=== PATIENT | male | born 1950 | race Two or more races ===

== ENCOUNTER 2018-02-19 08:17 | Inpatient (IN) | payer MEDICARE ==
[2018-02-14 08:46] VITALS: BP 167/76
[~2018-02-19] VITALS: Ht 170.2 cm; Wt 76.0 kg
[~2018-02-19 08:17] MED LIST: CALC1CAP8 PO; CHOL200074 PO; GLUC500T11 PO; MULT-224 PO; NAPR220C2 PO
[2018-02-19] MEDS ORDERED: LIDOCAINE-MPF 1%, 2ML ONE (10:19)
[2018-02-19] MEDS ORDERED: LACTATED RINGERS 1,000 ML IV SCH ×2 (10:23)
[2018-02-19] MEDS ORDERED: GABAPENTIN 300 MG CAPSULE ONE (10:26)
[2018-02-19] MEDS ORDERED: ACETAMINOPHEN 500 MG TABLET ONE (10:26)
[2018-02-19] MEDS ORDERED: OxyconTIN ER 10 MG TAB.ER ONE (10:26)
[2018-02-19] MEDS ORDERED: OxyconTIN ER 10 MG TAB.ER PO ONE (10:30)
[2018-02-19] MEDS ORDERED: ACETAMINOPHEN 500 MG TABLET PO ONE (10:30)
[2018-02-19] MEDS ORDERED: LIDOCAINE-MPF 1%, 2ML INFIL ONE ×2 (10:30)
[2018-02-19] MEDS ORDERED: GABAPENTIN 300 MG CAPSULE PO ONE (10:30)
[2018-02-19] MEDS ORDERED: FLUTICASONE TP (10:40)
[2018-02-19] MEDS ORDERED: MIDAZOLAM 1 MG/ML, 2ML ONE (11:25)
[2018-02-19] MEDS ORDERED: FENTANYL PF 100 MCG/2ML ONE (11:25)
[2018-02-19] MEDS ORDERED: PNEUMOCOCCAL 23 VACCINE IM-VACC ONE (11:30)
[2018-02-19] MEDS ORDERED: TRANEXAMIC ACID 100 MG/ML, 10ML ONE (12:21)
[2018-02-19] MEDS ORDERED: SODIUM CHLORIDE 0.9% 0 ML ONE (12:21)
[2018-02-19] MEDS ORDERED: EPINEPHRINE 1 MG/ML, 1ML ONE ×2 (12:21→14:20)
[2018-02-19] MEDS ORDERED: ROPIvacaine/PF 0.2%, 20 ML ONE ×2 (12:21→14:20)
[2018-02-19] MEDS ORDERED: BUPIVACAINE/PF 0.5% ONE (12:26)
[2018-02-19] MEDS ORDERED: PROMETHAZINE 12.5 MG SUPP PR PRN (12:30)
[2018-02-19] MEDS ORDERED: HYDROmorphone 1 MG/ML, 1ML IV PRN (12:30)
[2018-02-19] MEDS ORDERED: DIPHENHYDRAMINE 50 MG CAPSULE PO PRN (12:30)
[2018-02-19] MEDS ORDERED: ACETAMINOPHEN 650 MG/20.3 ML UDC PO SCH (12:30)
[2018-02-19] MEDS ORDERED: ZOLPIDEM 5MG TABLET PO PRN (12:30)
[2018-02-19] MEDS ORDERED: ALUMINUM/MAG/SIMETHICONE 30 ML UDC PO PRN (12:30)
[2018-02-19] MEDS ORDERED: SENNA/DOCUSATE TABLET PO PRN (12:30)
[2018-02-19] MEDS ORDERED: DIAZEPAM 5 MG TABLET PO PRN (12:30)
[2018-02-19] MEDS ORDERED: ONDANSETRON 2MG/ML, 2ML IV PRN (12:30)
[2018-02-19] MEDS ORDERED: BISACODYL 10 MG SUPP PR PRN (12:30)
[2018-02-19] MEDS ORDERED: OXYcodone IR 5MG TABLET PO PRN (12:30)
[2018-02-19] MEDS ORDERED: MAGNESIUM HYDROXIDE 8%, 30ML UDC PO PRN (12:30)
[2018-02-19] MEDS ORDERED: KETOROLAC 30 MG/1 ML IV SCH (12:30)
[2018-02-19] MEDS ORDERED: ONDANSETRON 4 MG TABLET PO PRN (12:30)
[2018-02-19] MEDS ORDERED: PROMETHAZINE 25 MG/ML, 1ML IM PRN (12:30)
[2018-02-19] MEDS ORDERED: HYDROcodone/APAP 10/325 MG TABLET PO PRN (12:30)
[2018-02-19] MEDS ORDERED: CEFAZOLIN 1,000 MG ONE (12:41)
[2018-02-19] MEDS ORDERED: PROPOFOL 10 MG/ML, 50ML ONE (12:41)
[2018-02-19] MEDS ORDERED: ONDANSETRON 2MG/ML, 2ML IVPush PRN (13:30)
[2018-02-19] MEDS ORDERED: HYDROcodone/APAP 7.5-325MG/15ML UDC PO PRN (13:30)
[2018-02-19] MEDS ORDERED: FENTANYL PF 100 MCG/2ML IV PRN (13:30)
[2018-02-19] MEDS ORDERED: hydrALAzine 20 MG/ML, 1ML IV PRN (13:30)
[2018-02-19] MEDS ORDERED: morphine SULFATE 10 MG/ML, 1ML IV PRN (13:30)
[2018-02-19] MEDS ORDERED: PROMETHAZINE 25 MG/ML, 1ML IV PRN (13:30)
[2018-02-19] MEDS ORDERED: LABETALOL 5MG/ML, 20ML IV PRN (13:30)
[2018-02-19] MEDS ORDERED: OXYcodone 5 MG/5 ML ORAL.SOL UDC PO PRN (13:30)
[2018-02-19] MEDS ORDERED: TRANEXAMIC ACID 1,000 MG in SODIUM CHLORIDE 0.9% 100 ML IVPB ONE (14:00)
[2018-02-19] MEDS ORDERED: KETOROLAC 60 MG/2 ML ONE (14:20)
[2018-02-19] MEDS ORDERED: SODIUM CHLORIDE 0.9% 100 ML ONE (14:20)
[2018-02-19] MEDS ORDERED: OXYcodone 5 MG/5 ML ORAL.SOL UDC ONE (15:15)
[2018-02-19 15:55] VITALS: BP 144/76
[2018-02-19] MEDS: D5%-0.45% NACL 1,000 ML IV SCH ×2 (16:08→18:45)
[2018-02-19] MEDS: OXYcodone IR 5MG TABLET PO SCH ×2 (16:11→20:43)
[2018-02-19] MEDS: TAMSULOSIN 0.4 MG CAP.ER.24H PO SCH (16:31)
[2018-02-19] MEDS: ACETAMINOPHEN 500 MG TABLET PO SCH ×2 (16:31→22:55)
[2018-02-19 18:51] VITALS: BP 144/73
[2018-02-19] MEDS ORDERED: CEFAZOLIN PMX 2GM/50ML 50 ML IVPB SCH (20:00)
[2018-02-19] MEDS: DOCUSATE 100 MG CAPSULE PO SCH (22:55)
[2018-02-20] MEDS: OXYcodone IR 5MG TABLET PO SCH ×4 (00:56→12:26)
[2018-02-20 01:28] VITALS: BP 108/56
[2018-02-20] MEDS ORDERED: CEFAZOLIN 2,000 MG in DEXTROSE 5% 100 ML IVPB SCH (04:00)
[2018-02-20] MEDS: ACETAMINOPHEN 500 MG TABLET PO SCH ×2 (04:30→11:11)
[2018-02-20] MEDS: D5%-0.45% NACL 1,000 ML IV SCH ×2 (04:54→12:09)
[2018-02-20] MEDS ORDERED: DEXAMETHASONE 4 MG/ML, 1ML IVPush SCH (06:00)
[2018-02-20] MEDS ORDERED: ASPIRIN 81 MG TABLET EC PO SCH (06:00)
[2018-02-20 07:15] VITALS: BP 126/65
[2018-02-20] MEDS: TAMSULOSIN 0.4 MG CAP.ER.24H PO SCH (08:42)
[2018-02-20] MEDS: DOCUSATE 100 MG CAPSULE PO SCH (08:42)
[2018-02-20] MEDS ORDERED: ACET500T71 PO (08:53)
[2018-02-20] MEDS ORDERED: ASPI-621 PO ×2 (08:53→10:23)
[2018-02-20] MEDS ORDERED: MULTIVITAMINS/MINERALS TABLET PO SCH (09:00)
[2018-02-20] MEDS ORDERED: OXYC5TAB3 PO (09:36)
[2018-02-20 12:10] VITALS: BP 137/71
[2018-02-20 12:18] VITALS: BP 111/55
[2018-02-20] MEDS ORDERED: KETOROLAC 30 MG/1 ML IV SCH (14:30)
== END 2018-02-20 13:30 | disposition home or self-care (01) | DRG 470 ==
LOC: ORIP 09:54 → 4NOR 15:44 → DCLOUNGE 02-20 13:20
PROVIDERS: ADMIT Orthopaedic Surgery; ATTEND Orthopaedic Surgery
PROC: 0SR901A Replacement of Right Hip Joint with Metal Synthetic Substitute, Uncemented, Open Approach (ICD-10-PCS; principal; 2018-02-19 12:30)
DX: M16.11 Unilateral primary osteoarthritis, right hip (principal)
CPT/HCPCS: 36415; 72170; 85014; 85018; 86850; 86900; 90732; C1713; J0171; J0690; J1100; J1885; J2250; J2704; J2795; J3010; J3490; C1776; J7120

== ENCOUNTER 2019-10-13 15:54 | Observation (INO) | payer MEDICARE ==
[~2019-10-13] VITALS: Ht 165.1 cm; Wt 67.8 kg
[~2019-10-13 15:54] MED LIST changes: +ACET500T64 PO; +ASPI81TA45 PO; +FLUTICASONE TP; -MULT-224 PO; +MULT-642 PO; +OXYC5TAB3 PO
[2019-10-13] MEDS ORDERED: TRAZ-137 PO (16:13)
--- NOTE | 2019-10-13 16:24 | NUR ---
PT ARRIVES TO ED WITH NEURO COMPLAINTS AND SOME CHEST PAIN. PT REPORTS HE HAS HAD THIS CRAMPING IN HIS HEAD AND FEELING LIKE ANTS ARE CRAWLING IN HIS HEAD. HE REPORTS THAT HE FEELS HIS MUSCLES TIGHTEN UP ON HIS NECK ON THE RIGHT SIDE. PT DENIES SIGNIFICANT MEDICAL HX. PT REPORTS NO TRUAMA. PT IS ABLE TO AMBULATE AND GROSS NEURO APPEARS INTACT. PT BEEN SEEN BY CARDIOLOGY AND HIS PCP AND HAS ORDERS IN PLACE. PT CONNECTED TO SPO2, HR, BP AND RR. CALL LIGHT IN REACH. AWAITING FURTHER ORDERS.
[2019-10-13] MEDS ORDERED: ASPIRIN 81 MG TABLET CHEW ONE (16:37)
[2019-10-13 16:52] LABS: BASOPHILS # (AUTO) 0.09 x10^3/uL (0-0.1); BASOPHILS % (AUTO) 1 % (0-1); EOSINOPHILS # (AUTO) 0.02 x10^3/uL (0-0.4); EOSINOPHILS % (AUTO) 0 % (1-7); LYMPHOCYTES # (AUTO) 1.18 x10^3/uL (1-3.4); LYMPHOCYTES % (AUTO) 19 % (22-44); MD NO; MEAN CORPUSCULAR HEMOGLOBIN 27.4 pg (27.5-34.5); MEAN CORPUSCULAR HGB CONC 32.6 g/dL (33.2-36.2); MEAN CORPUSCULAR VOLUME 84.1 fL (81-97); MEAN PLATELET VOLUME 7.2 fL (7.4-10.4); MONOCYTES # (AUTO) 0.49 x10^3/uL (0.2-0.8); MONOCYTES % (AUTO) 8 % (2-9); NEUTROPHILS # (AUTO) 4.43 x10^3/uL (1.8-6.8); NEUTROPHILS % (AUTO) 71 % (42-75); PLATELET COUNT 250 x10^3/uL (130-400); RED BLOOD COUNT 4.86 x10^6/uL (4.38-5.82)
[2019-10-13] MEDS ORDERED: ASPIRIN 81 MG TABLET CHEW PO ONE (17:00)
[2019-10-13] MEDS ORDERED: SODIUM CHLORIDE FLUSH 10ML SYR IVF ONE (17:00)
[2019-10-13 17:05] LABS: ALBUMIN 3.7 g/dL (3.4-5.0); ANION GAP 5 mmol/L (5-15); CALCIUM 8.9 mg/dL (8.5-10.1); CHLORIDE 109 mmol/L (98-107); CREATININE 0.83 mg/dL (0.7-1.3)
[2019-10-13 17:08] LABS: TROPONIN I < 0.015 ng/mL (0.000-0.045)
--- NOTE | 2019-10-13 18:10 | NUR ---
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
--- NOTE | 2019-10-13 18:26 | NUR ---
PIV PLACED, MED REC COMPLETED. PT PREPED FOR ADMISSION.
[2019-10-13] MEDS ORDERED: SODIUM CHLORIDE FLUSH 10ML SYR IVF PRN (18:30)
[2019-10-13] MEDS ORDERED: morphine SULFATE 10 MG/ML, 1ML IVPush PRN (18:30)
[2019-10-13] MEDS ORDERED: NITROGLYCERIN 0.4 MG BOTTLE (25 TABS) SL PRN (18:30)
[2019-10-13] MEDS: HEPARIN 5,000 UNITS/ML, 1ML SQ SCH (18:30)
[2019-10-13] MEDS ORDERED: ONDANSETRON ODT 4 MG PO PRN (18:30)
[2019-10-13] MEDS ORDERED: BISACODYL 10 MG SUPP PR PRN (18:30)
[2019-10-13] MEDS ORDERED: ACETAMINOPHEN 325 MG TABLET PO PRN (18:30)
[2019-10-13] MEDS ORDERED: POLYETHYLENE GLYCOL 17 GM PACKET PO PRN (18:30)
[2019-10-13] MEDS ORDERED: HEPARIN 5,000 UNITS/ML, 1ML ONE (18:33)
--- NOTE | 2019-10-13 18:40 | NUR ---
BEDSIDE REPORT TO DUSTIN Pelayo RN.
[2019-10-13 19:17] VITALS: BP 142/65
[2019-10-13] MEDS: SODIUM CHLORIDE FLUSH 10ML SYR IVF SCH (20:40)
[2019-10-13] MEDS ORDERED: TRAZODONE 50MG TABLET PO SCH (21:00)
[2019-10-13 23:37] LABS: TROPONIN I < 0.015 ng/mL (0.000-0.045)
[2019-10-14 01:53] VITALS: BP 123/64
[2019-10-14] MEDS: HEPARIN 5,000 UNITS/ML, 1ML SQ SCH ×2 (02:19→11:13)
[2019-10-14 05:36] LABS: BASOPHILS # (AUTO) 0.06 x10^3/uL (0-0.1); BASOPHILS % (AUTO) 1 % (0-1); EOSINOPHILS # (AUTO) 0.08 x10^3/uL (0-0.4); EOSINOPHILS % (AUTO) 2 % (1-7); LYMPHOCYTES # (AUTO) 1.36 x10^3/uL (1-3.4); LYMPHOCYTES % (AUTO) 27 % (22-44); MD NO; MEAN CORPUSCULAR HEMOGLOBIN 27.3 pg (27.5-34.5); MEAN CORPUSCULAR HGB CONC 32.1 g/dL (33.2-36.2); MEAN CORPUSCULAR VOLUME 85.1 fL (81-97); MEAN PLATELET VOLUME 7.7 fL (7.4-10.4); MONOCYTES # (AUTO) 0.48 x10^3/uL (0.2-0.8); MONOCYTES % (AUTO) 10 % (2-9); NEUTROPHILS % (AUTO) 61 % (42-75); PLATELET COUNT 228 x10^3/uL (130-400); RED BLOOD COUNT 4.78 x10^6/uL (4.38-5.82); RED CELL DISTRIBUTION WIDTH 14.7 % (9.4-14.8)
[2019-10-14 05:46] LABS: ALANINE AMINOTRANSFERASE 20 U/L (12-78); ALBUMIN 3.2 g/dL (3.4-5.0); ANION GAP 4 mmol/L (5-15); CALCIUM 8.6 mg/dL (8.5-10.1); CHLORIDE 111 mmol/L (98-107); CHOLESTEROL, TOTAL 141 mg/dL (140-239); CREATININE 0.82 mg/dL (0.7-1.3)
[2019-10-14 05:51] LABS: ALKALINE PHOSPHATASE 80 U/L (45-117); BILIRUBIN,TOTAL 0.5 mg/dL (0.2-1.0); CHOL/HDL RATIO 3.7; HDL CHOL % 27 % (26-37); HDL CHOLESTEROL (DIRECT) 38 mg/dL (40-60); LDL CHOLESTEROL,CALCULATED 89 mg/dL (54-169); LDL/HDL RATIO 2.3 (0.5-3.0); TOTAL PROTEIN 6.5 g/dL (6.4-8.2); TRIGLYCERIDES 68 mg/dL (50-200); TROPONIN I < 0.015 ng/mL (0.000-0.045); VLDL CHOLESTEROL 14 mg/dL (0-25)
[2019-10-14] MEDS ORDERED: ASPIRIN 81 MG TABLET EC PO SCH (06:00)
[2019-10-14] MEDS: SODIUM CHLORIDE FLUSH 10ML SYR IVF SCH (07:53)
[2019-10-14 08:04] VITALS: BP 124/70
[2019-10-14] MEDS ORDERED: CALCIUM/VITAMIN D3 250-125 TABLET PO SCH (09:00)
[2019-10-14] MEDS ORDERED: TEMPLATE NON-FORMULARY MED. (Glucosamine Hcl** 500 MG) PO SCH (09:00)
[2019-10-14] MEDS ORDERED: CHOLECALCIFEROL 1,000 UNIT TABLET PO SCH (09:00)
[2019-10-14] MEDS ORDERED: MULTIVITAMIN 1 TABLET PO SCH (09:00)
[2019-10-14] MEDS ORDERED: SENNA/DOCUSATE TABLET PO SCH (09:00)
[2019-10-14 13:17] VITALS: BP 157/71
== END 2019-10-14 15:14 | disposition home or self-care (01) ==
LOC: ED 16:25 → EDIP 18:16 → INTOOBSV 18:16 → 5SO 19:05 → DCLOUNGE 10-14 15:10
PROVIDERS: ADMIT Internal Medicine; ATTEND Internal Medicine
DX: R07.9 Chest pain, unspecified (principal); G47.00 Insomnia, unspecified; I20.0 Unstable angina; I21.9 Acute myocardial infarction, unspecified; Z96.641 Presence of right artificial hip joint; Z79.82 Long term (current) use of aspirin; Z79.899 Other long term (current) drug therapy
CPT/HCPCS: 36415; 71045; 78452; 80048; 80053; 80061; 82040; 84484; 85025; 93005; 93017; 96372; 99285; A9502; G0378; J1644

== ENCOUNTER → 2020-01-30 | Outpatient (CLI) | payer MEDICARE ==
[~2020-01-30] MED LIST changes: +TRAZ-175 PO
== END | disposition home or self-care (01) ==
LOC: CFH 08:39
PROVIDERS: ATTEND Internal Medicine Cardiovascular Disease
DX: I48.20 Chronic atrial fibrillation, unspecified (principal); I10 Essential (primary) hypertension
CPT/HCPCS: 93306